=== PATIENT | female | born 1990 | race Caucasian/White ===

== ENCOUNTER 2017-11-25 21:23 | Emergency (ER) | payer OTHER ==
[2017-11-25] MEDS ORDERED: SODIUM CHLORIDE 0.9% 500 ML IV STA (21:30)
[2017-11-25] MEDS ORDERED: SODIUM CHLORIDE 0.9% 1,000 ML IV STA (21:30)
[2017-11-25] MEDS ORDERED: LORazepam 2 MG/ML INJ IV STA (21:30)
--- NOTE | 2017-11-25 21:35 | ED ---
Nausea/Vomiting/Diarrhea HPI - General Stated complaint: abd pain Time Seen by Provider: 11/25/17 21:23 Source: patient, EMS, RN notes reviewed, old records reviewed - History of Present Illness Initial comments: This is a 27-year-old female who is status post an exploratory laparotomy for right ovarian cyst and intractable abdominal pain who comes in today by EMS because of intractable nausea vomiting and lower abdominal pain. When asked how he time she struck she says at least 300. She was given Zofran by paramedics. He does still somewhat improved she was noted be very anxious and hyperventilating upon arrival. Apparently the nausea started yesterday when she got home and got worse today and this afternoon. She denies any fevers chills sweats he does complain of severe abdominal pain. No overt complaints of dysuria or hematuria diarrhea or constipation. MD complaint: nausea, vomiting, abdominal pain - Related Data Home Medications Medication Instructions Recorded Confirmed Multivitamins, Thera [Multivitamin 1 tab PO DAILY 11/25/17 11/25/17 (formulary)] Previous Rx's Medication Instructions Recorded Promethazine [Phenergan] 25 mg PO Q6HR PRN #12 tablet 11/25/17 traMADol HCL [Ultram] 50 mg PO Q6HR PRN #20 tab 11/25/17 Allergies Allergy/AdvReac Type Severity Reaction Status Date / Time codeine AdvReac Nausea & Verified 11/25/17 21:44 Vomiting Review of Systems ROS Statement: Those systems with pertinent positive or pertinent negative responses have been documented in the HPI. ROS Other: All systems not noted in ROS Statement are negative. Past Medical History Past Medical History: No Reported History History of Any Multi-Drug Resistant Organisms: None Reported Additional Past Surgical History / Comment(s): Exploratory abdominal surgery 2014 fluid found Past Psychological History: Anxiety Smoking Status: Never smoker Past Alcohol Use History: None Reported Past Drug Use History: Marijuana Additional Drug Use History / Comment(s): smokes pot everyday, keeps her calm - Past Family History Mother Family Medical History: No Reported History General Exam - General Exam Comments Initial Comments: This is a well-developed well-nourished awake alert oriented 3 female she is very anxious he is hyperventilating. Limitations: no limitations General appearance: alert, anxious, in distress Head exam: Present: atraumatic, normocephalic, normal inspection Eye exam: Present: normal appearance, PERRL, EOMI. Absent: scleral icterus, conjunctival injection, periorbital swelling ENT exam: Present: normal exam, mucous membranes moist Neck exam: Present: normal inspection. Absent: tenderness, meningismus, lymphadenopathy Respiratory exam: Present: normal lung sounds bilaterally. Absent: respiratory distress, wheezes, rales, rhonchi, stridor Cardiovascular Exam: Present: regular rate, normal rhythm, normal heart sounds. Absent: systolic murmur, diastolic murmur, rubs, gallop, clicks GI/Abdominal exam: Present: soft, tenderness, normal bowel sounds, other (Mild discomfort to palpation in the incision site in the mid and left lower quadrant is intact with Steri-Strips present no evidence of any dehiscence no bleeding no evidence of any seroma hematoma.). Absent: distended, guarding, rebound, rigid Rectal exam: Present: deferred Extremities exam: Present: normal inspection, full ROM, normal capillary refill. Absent: tenderness, pedal edema, joint swelling, calf tenderness Back exam: Present: normal inspection Neurological exam: Present: alert, oriented X3, CN II-XII intact Psychiatric exam: Present: anxious Skin exam: Present: warm, dry, intact, normal color. Absent: rash Course Vital Signs 11/25/17 21:30 Temperature 98.0 F Pulse Rate 90 Respiratory 26 H Rate Blood Pressure 138/87 O2 Sat by Pulse 100 Oximetry Medical Decision Making - Medical Decision Making The patient is so much improved after the medication was rendered. She will be discharged she states she gets very nauseated with [place] we will try tramadol. Also the Phenergan seemed to help she will fill prescription for Phenergan. She is keep her follow-up appointment with Dr. Whitlock I did recommend to the patient takes citrus products as well as bananas for potassium replacement. - Lab Data Result diagrams: 11/25/17 21:28 11/25/17 21:28 Lab Results 11/25/17 11/25/17 11/25/17 Range/Units 21:28 21:28 21:28 WBC 6.3 (3.8-10.6) k/uL RBC 3.05 L (3.80-5.40) m/uL Hgb 10.0 L D (11.4-16.0) gm/dL Hct 27.3 L (34.0-46.0) % MCV 89.8 (80.0-100.0) fL MCH 33.0 (25.0-35.0) pg MCHC 36.7 (31.0-37.0) g/dL RDW 13.1 (11.5-15.5) % Plt Count 234 (150-450) k/uL Neutrophils % 73 % Lymphocytes % 18 % Monocytes % 4 % Eosinophils % 3 % Basophils % 0 % Neutrophils # 4.5 (1.3-7.7) k/uL Lymphocytes # 1.1 (1.0-4.8) k/uL Monocytes # 0.3 (0-1.0) k/uL Eosinophils # 0.2 (0-0.7) k/uL Basophils # 0.0 (0-0.2) k/uL Hyperchromasia Slight Sodium 138 (137-145) mmol/L Potassium 3.3 L (3.5-5.1) mmol/L Chloride 106 (98-107) mmol/L Carbon Dioxide 24 (22-30) mmol/L Anion Gap 8 mmol/L BUN 10 (7-17) mg/dL Creatinine 0.61 (0.52-1.04) mg/dL Est GFR (MDRD) Af Amer >60 (>60 ml/min/1.73 sqM) Est GFR (MDRD) Non-Af >60 (>60 ml/min/1.73 sqM) Glucose 101 H (74-99) mg/dL Calcium 9.0 (8.4-10.2) mg/dL Magnesium 1.8 (1.6-2.3) mg/dL Total Bilirubin 0.7 (0.2-1.3) mg/dL AST 22 (14-36) U/L ALT 21 (9-52) U/L Alkaline Phosphatase 42 (38-126) U/L Total Protein 6.1 L (6.3-8.2) g/dL Albumin 3.7 (3.5-5.0) g/dL Amylase 38 (30-110) U/L Lipase 35 (23-300) U/L Urine Color Urine Appearance (Clear) Urine pH (5.0-8.0) Ur Specific [place] (1.001-1.035) Urine Protein (Negative) Urine Glucose (UA) (Negative) Urine Ketones (Negative) Urine Blood (Negative) Urine Nitrite (Negative) Urine Bilirubin (Negative) Urine Urobilinogen (<2.0) mg/dL Ur Leukocyte Esterase (Negative) Urine RBC (0-5) /hpf Urine WBC (0-5) /hpf Ur Squamous Epith Cells (0-4) /hpf Amorphous Sediment (None) /hpf Urine Bacteria (None) /hpf Urine Mucus (None) /hpf 11/25/17 Range/Units 22:44 WBC (3.8-10.6) k/uL RBC (3.80-5.40) m/uL Hgb (11.4-16.0) gm/dL Hct (34.0-46.0) % MCV (80.0-100.0) fL MCH (25.0-35.0) pg MCHC (31.0-37.0) g/dL RDW (11.5-15.5) % Plt Count (150-450) k/uL Neutrophils % % Lymphocytes % % Monocytes % % Eosinophils % % Basophils % % Neutrophils # (1.3-7.7) k/uL Lymphocytes # (1.0-4.8) k/uL Monocytes # (0-1.0) k/uL Eosinophils # (0-0.7) k/uL Basophils # (0-0.2) k/uL Hyperchromasia Sodium (137-145) mmol/L Potassium (3.5-5.1) mmol/L Chloride (98-107) mmol/L Carbon Dioxide (22-30) mmol/L Anion Gap mmol/L BUN (7-17) mg/dL Creatinine (0.52-1.04) mg/dL Est GFR (MDRD) Af Amer (>60 ml/min/1.73 sqM) Est GFR (MDRD) Non-Af (>60 ml/min/1.73 sqM) Glucose (74-99) mg/dL Calcium (8.4-10.2) mg/dL Magnesium (1.6-2.3) mg/dL Total Bilirubin (0.2-1.3) mg/dL AST (14-36) U/L ALT (9-52) U/L Alkaline Phosphatase (38-126) U/L Total Protein (6.3-8.2) g/dL Albumin (3.5-5.0) g/dL Amylase (30-110) U/L Lipase (23-300) U/L Urine Color Yellow Urine Appearance Cloudy H (Clear) Urine pH 8.0 (5.0-8.0) Ur Specific [place] 1.020 (1.001-1.035) Urine Protein Trace H (Negative) Urine Glucose (UA) Negative (Negative) Urine Ketones 1+ H (Negative) Urine Blood Negative (Negative) Urine Nitrite Negative (Negative) Urine Bilirubin Negative (Negative) Urine Urobilinogen <2.0 (<2.0) mg/dL Ur Leukocyte Esterase Trace H (Negative) Urine RBC 1 (0-5) /hpf Urine WBC 6 H (0-5) /hpf Ur Squamous Epith Cells 5 H (0-4) /hpf Amorphous Sediment Rare H (None) /hpf Urine Bacteria Rare H (None) /hpf Urine Mucus Moderate H (None) /hpf - Radiology Data Radiology results: report reviewed (I did review the imaging and report no acute findings.), image reviewed Disposition Clinical Impression: Nausea and vomiting in adult, Postoperative pain Disposition: HOME SELF-CARE Condition: Good Instructions: Acute Nausea and Vomiting (ED) Prescriptions: Promethazine [Phenergan] 25 mg PO Q6HR PRN #12 tablet PRN Reason: Nausea traMADol HCL [Ultram] 50 mg PO Q6HR PRN #20 tab PRN Reason: Pain Referrals: None,Stated [Primary Care Provider] - 1-2 days
[2017-11-25] MEDS ORDERED: HYDROmorphone 2 MG/ML 1 ML SYRINGE IVP STA (21:39)
[2017-11-25 21:48] LABS: Basophils % (A) 0 %; Eosinophils # (A) 0.2 k/uL (0-0.7); Eosinophils % (A) 3 %; HCT 27.3 % (34.0-46.0); Hyperchromasia Slight; Lymphocytes # (A) 1.1 k/uL (1.0-4.8); Lymphocytes % (A) 18 %; MCHC 36.7 g/dL (31.0-37.0); MCV 89.8 fL (80.0-100.0); Mean Platelet Volume 7.5; Monocytes # (A) 0.3 k/uL (0-1.0); Monocytes % (A) 4 %; Neutrophils # (A) 4.5 k/uL (1.3-7.7); Neutrophils % (A) 73 %; Platelet Count 234 k/uL (150-450); RBC 3.05 m/uL (3.80-5.40); RDW 13.1 % (11.5-15.5); WBC 6.3 k/uL (3.8-10.6)
[2017-11-25 21:55] LABS: ALT 21 U/L (9-52); AST 22 U/L (14-36); Albumin 3.7 g/dL (3.5-5.0); Alkaline Phosphatase 42 U/L (38-126); Amylase 38 U/L (30-110); Anion Gap 8 mmol/L; Blood Urea Nitrogen 10 mg/dL (7-17); Carbon Dioxide 24 mmol/L (22-30); Chloride 106 mmol/L (98-107); Glucose 101 mg/dL (74-99); Lipase 35 U/L (23-300); Potassium 3.3 mmol/L (3.5-5.1); Sodium 138 mmol/L (137-145); Total Bilirubin 0.7 mg/dL (0.2-1.3); Total Protein 6.1 g/dL (6.3-8.2)
[2017-11-25] MEDS ORDERED: PROMETHAZINE INJ 25 MG in SODIUM CHLORIDE 0.9% 50 ML IVPB STA (22:08)
--- NOTE | 2017-11-25 22:11 | XR ---
EXAMINATION TYPE: XR KUB DATE OF EXAM: 11/25/2017 COMPARISON: NONE HISTORY: Abdominal pain TECHNIQUE: 2 views FINDINGS: Bowel gas pattern is normal. There is no sign of intestinal obstruction or pneumoperitoneum . Fecal pattern is normal. There are no pathologic calcifications over the kidneys. Lung bases are cl ear. IMPRESSION: Nonacute abdomen.
[2017-11-25 22:54] LABS: Amorphous Sediment,Urine Rare /hpf; Appearance,Urine Cloudy (Clear); Bacteria,Urine Rare /hpf; Bilirubin,Urine Negative (Negative); Blood,Urine Negative (Negative); Color,Urine Yellow; Glucose,Urine (UA) Negative (Negative); Ketones,Urine 1+ (Negative); Leukocyte Esterase,Urine Trace (Negative); Mucus,Urine Moderate /hpf; Nitrite,Urine Negative (Negative); Protein,Urine Trace (Negative); RBC,Urine 1 /hpf (0-5); Squamous Epithelial Cell,Urine 5 /hpf (0-4); Urobilinogen,Urine <2.0 mg/dL (<2.0); WBC,Urine 6 /hpf (0-5)
--- NOTE | 2017-11-25 23:09 | ED ---
Medical Decision Making - Lab Data Result diagrams: 11/25/17 21:28 11/25/17 21:28 Lab Results 11/25/17 11/25/17 11/25/17 Range/Units 21:28 21:28 21:28 WBC 6.3 (3.8-10.6) k/uL RBC 3.05 L (3.80-5.40) m/uL Hgb 10.0 L D (11.4-16.0) gm/dL Hct 27.3 L (34.0-46.0) % MCV 89.8 (80.0-100.0) fL MCH 33.0 (25.0-35.0) pg MCHC 36.7 (31.0-37.0) g/dL RDW 13.1 (11.5-15.5) % Plt Count 234 (150-450) k/uL Neutrophils % 73 % Lymphocytes % 18 % Monocytes % 4 % Eosinophils % 3 % Basophils % 0 % Neutrophils # 4.5 (1.3-7.7) k/uL Lymphocytes # 1.1 (1.0-4.8) k/uL Monocytes # 0.3 (0-1.0) k/uL Eosinophils # 0.2 (0-0.7) k/uL Basophils # 0.0 (0-0.2) k/uL Hyperchromasia Slight Sodium 138 (137-145) mmol/L Potassium 3.3 L (3.5-5.1) mmol/L Chloride 106 (98-107) mmol/L Carbon Dioxide 24 (22-30) mmol/L Anion Gap 8 mmol/L BUN 10 (7-17) mg/dL Creatinine 0.61 (0.52-1.04) mg/dL Est GFR (MDRD) Af Amer >60 (>60 ml/min/1.73 sqM) Est GFR (MDRD) Non-Af >60 (>60 ml/min/1.73 sqM) Glucose 101 H (74-99) mg/dL Calcium 9.0 (8.4-10.2) mg/dL Magnesium 1.8 (1.6-2.3) mg/dL Total Bilirubin 0.7 (0.2-1.3) mg/dL AST 22 (14-36) U/L ALT 21 (9-52) U/L Alkaline Phosphatase 42 (38-126) U/L Total Protein 6.1 L (6.3-8.2) g/dL Albumin 3.7 (3.5-5.0) g/dL Amylase 38 (30-110) U/L Lipase 35 (23-300) U/L Urine Color Urine Appearance (Clear) Urine pH (5.0-8.0) Ur Specific [place] (1.001-1.035) Urine Protein (Negative) Urine Glucose (UA) (Negative) Urine Ketones (Negative) Urine Blood (Negative) Urine Nitrite (Negative) Urine Bilirubin (Negative) Urine Urobilinogen (<2.0) mg/dL Ur Leukocyte Esterase (Negative) Urine RBC (0-5) /hpf Urine WBC (0-5) /hpf Ur Squamous Epith Cells (0-4) /hpf Amorphous Sediment (None) /hpf Urine Bacteria (None) /hpf Urine Mucus (None) /hpf 11/25/17 Range/Units 22:44 WBC (3.8-10.6) k/uL RBC (3.80-5.40) m/uL Hgb (11.4-16.0) gm/dL Hct (34.0-46.0) % MCV (80.0-100.0) fL MCH (25.0-35.0) pg MCHC (31.0-37.0) g/dL RDW (11.5-15.5) % Plt Count (150-450) k/uL Neutrophils % % Lymphocytes % % Monocytes % % Eosinophils % % Basophils % % Neutrophils # (1.3-7.7) k/uL Lymphocytes # (1.0-4.8) k/uL Monocytes # (0-1.0) k/uL Eosinophils # (0-0.7) k/uL Basophils # (0-0.2) k/uL Hyperchromasia Sodium (137-145) mmol/L Potassium (3.5-5.1) mmol/L Chloride (98-107) mmol/L Carbon Dioxide (22-30) mmol/L Anion Gap mmol/L BUN (7-17) mg/dL Creatinine (0.52-1.04) mg/dL Est GFR (MDRD) Af Amer (>60 ml/min/1.73 sqM) Est GFR (MDRD) Non-Af (>60 ml/min/1.73 sqM) Glucose (74-99) mg/dL Calcium (8.4-10.2) mg/dL Magnesium (1.6-2.3) mg/dL Total Bilirubin (0.2-1.3) mg/dL AST (14-36) U/L ALT (9-52) U/L Alkaline Phosphatase (38-126) U/L Total Protein (6.3-8.2) g/dL Albumin (3.5-5.0) g/dL Amylase (30-110) U/L Lipase (23-300) U/L Urine Color Yellow Urine Appearance Cloudy H (Clear) Urine pH 8.0 (5.0-8.0) Ur Specific [place] 1.020 (1.001-1.035) Urine Protein Trace H (Negative) Urine Glucose (UA) Negative (Negative) Urine Ketones 1+ H (Negative) Urine Blood Negative (Negative) Urine Nitrite Negative (Negative) Urine Bilirubin Negative (Negative) Urine Urobilinogen <2.0 (<2.0) mg/dL Ur Leukocyte Esterase Trace H (Negative) Urine RBC 1 (0-5) /hpf Urine WBC 6 H (0-5) /hpf Ur Squamous Epith Cells 5 H (0-4) /hpf Amorphous Sediment Rare H (None) /hpf Urine Bacteria Rare H (None) /hpf Urine Mucus Moderate H (None) /hpf Disposition Clinical Impression: Nausea and vomiting in adult, Postoperative pain, Anxiety Disposition: HOME SELF-CARE Condition: Good Instructions: Acute Nausea and Vomiting (ED), Anxiety (ED), Abdominal Pain (ED) Prescriptions: ALPRAZolam [Xanax] 0.25 mg PO BID PRN #6 tab PRN Reason: Anxiety Promethazine [Phenergan] 25 mg PO Q6HR PRN #12 tablet PRN Reason: Nausea traMADol HCL [Ultram] 50 mg PO Q6HR PRN #20 tab PRN Reason: Pain Referrals: None,Stated [Primary Care Provider] - 1-2 days
[2017-11-25 23:17] VITALS: BP 120/69; PULSE 80; RESP 17; TEMP 98.4
== END 2017-11-25 23:30 | disposition home or self-care (01) ==
LOC: EC 21:23
DX: R11.2 Nausea with vomiting, unspecified (principal); R10.30 Lower abdominal pain, unspecified; G89.18 Other acute postprocedural pain; F41.9 Anxiety disorder, unspecified; Z98.890 Other specified postprocedural states; Z79.899 Other long term (current) drug therapy; Z88.5 Allergy status to narcotic agent
CPT/HCPCS: 36415; 80053; 82150; 83690; 83735; 85025; 81001; 74018; 99285; 96374; 96375 ×2; 96361 ×2; J2060; J1170; J2550

== ENCOUNTER 2018-05-27 06:42 | Emergency (ER) | payer OTHER ==
[2018-05-27 06:51] VITALS: BP 125/85; PULSE 88; RESP 18; TEMP 98.9
--- NOTE | 2018-05-27 07:15 | ED ---
General Adult HPI - General Chief complaint: Extremity Injury, Lower Stated complaint: Knee injury Time Seen by Provider: 05/27/18 07:00 Source: patient, RN notes reviewed, old records reviewed Mode of arrival: ambulatory Limitations: no limitations - History of Present Illness Initial comments: 28-year-old female resents with right knee injury. Patient states yesterday she was stepping off of a 2-3 for rock, twisted on her right knee. She did feel a pop at that time. She's had pain and swelling with any movement of the knee since the injury. Denies any injury to hip or ankle. No other trauma reported. Patient is otherwise healthy with no chronic medical problems. - Related Data Previous Rx's Medication Instructions Recorded Ibuprofen [Motrin] 600 mg PO Q8HR PRN #24 tab 05/27/18 Allergies Allergy/AdvReac Type Severity Reaction Status Date / Time codeine AdvReac Nausea & Verified 05/27/18 06:51 Vomiting Review of Systems ROS Statement: Those systems with pertinent positive or pertinent negative responses have been documented in the HPI. ROS Other: All systems not noted in ROS Statement are negative. Past Medical History Past Medical History: No Reported History History of Any Multi-Drug Resistant Organisms: None Reported Additional Past Surgical History / Comment(s): Exploratory abdominal surgery 2014 fluid found, Ovaran csyst removal Past Psychological History: Anxiety Smoking Status: Never smoker Past Alcohol Use History: None Reported Past Drug Use History: Marijuana - Past Family History Mother Family Medical History: No Reported History General Exam Limitations: no limitations General appearance: alert, in no apparent distress Head exam: Present: atraumatic, normocephalic Eye exam: Present: normal appearance, PERRL ENT exam: Present: normal exam Neck exam: Present: normal inspection. Absent: tenderness, meningismus Respiratory exam: Present: normal lung sounds bilaterally. Absent: respiratory distress, wheezes Cardiovascular Exam: Present: regular rate, normal rhythm GI/Abdominal exam: Present: soft. Absent: distended, tenderness Extremities exam: Present: normal capillary refill, joint swelling, other (Mild right knee effusion. Range of motion limited secondary to pain.). Absent: pedal edema Neurological exam: Present: alert, oriented X3. Absent: motor sensory deficit Psychiatric exam: Present: normal affect, normal mood Skin exam: Present: warm, dry, intact. Absent: cyanosis, diaphoretic Course Vital Signs 05/27/18 06:47 Temperature 98.9 F Pulse Rate 88 Respiratory 18 Rate Blood Pressure 125/85 O2 Sat by Pulse 99 Oximetry Medical Decision Making - Medical Decision Making 28-year-old female presenting with right knee pain status post bending and twisting injury. She has mild joint effusion on exam. Otherwise well- appearing. X-rays obtained, negative for fracture or dislocation. Patient is placed in a knee immobilizer, given prescription for crutches, will follow-up with orthopedics, for likely MRI knee, and further evaluation treatment. Disposition Clinical Impression: Knee effusion, right, Knee strain Disposition: HOME SELF-CARE Condition: Good Instructions: Knee Sprain (ED) Prescriptions: Ibuprofen [Motrin] 600 mg PO Q8HR PRN #24 tab PRN Reason: Pain Is patient prescribed a controlled substance at d/c from ED?: No Referrals: None,Stated [Primary Care Provider] - 1-2 days Herbert Porras MD [Medical Doctor] - 1-2 days Time of Disposition: 08:07
[2018-05-27] MEDS ORDERED: KETOROLAC 30 MG/ML 1 ML VIAL IM STA (07:49)
[2018-05-27] MEDS ORDERED: IBUPROFEN 600 MG TAB PO STA (07:51)
--- NOTE | 2018-05-27 08:04 | XR ---
EXAMINATION TYPE: XR knee complete RT DATE OF EXAM: 05/27/2018 COMPARISON: None HISTORY: Pain, felt pop stepping off ladder awkwardly TECHNIQUE: Three-view right knee FINDINGS: No acute fractures are evident. Soft tissues appear normal. No joint effusion is evident. IMPRESSION: 1. Normal three-view right knee
== END 2018-05-27 08:32 | disposition home or self-care (01) ==
LOC: EC 06:42
DX: S86.911A Strain of unspecified muscle(s) and tendon(s) at lower leg level, right leg, initial encounter (principal); Z88.5 Allergy status to narcotic agent; Z53.20 Procedure and treatment not carried out because of patient's decision for unspecified reasons; W22.09XA Striking against other stationary object, initial encounter; X50.1XXA Overexertion from prolonged static or awkward postures, initial encounter; Y92.69 Other specified industrial and construction area as the place of occurrence of the external cause
CPT/HCPCS: 99284

== ENCOUNTER 2018-10-10 02:19 | Emergency (ER) | payer OTHER ==
[2018-10-10] MEDS ORDERED: ACETAMINOPHEN TAB 500 MG TAB PO STA (02:33)
[2018-10-10] MEDS ORDERED: KETOROLAC 30 MG/ML 1 ML VIAL IVP STA (02:34)
[2018-10-10] MEDS ORDERED: METOCLOPRAMIDE 5 MG/ML 2 ML VIAL IVP STA (02:34)
[2018-10-10] MEDS ORDERED: diphenhydrAMINE 50 MG/ML 1 ML VIAL IVP STA (02:34)
--- NOTE | 2018-10-10 02:44 | ED ---
General Adult HPI - General Chief complaint: Skin/Abscess/Foreign Body Stated complaint: fever,spider bite Time Seen by Provider: 10/10/18 02:28 Source: patient Mode of arrival: ambulatory Limitations: no limitations - History of Present Illness Initial comments: 28-year-old female patient presents to the emergency department today with chief complaint of headache and lesion to the right thigh. Patient states she was in [place] a week ago, developed what she thought was an ingrown hair to the right anterior thigh. Patient states over the last couple days the area has become more red and swollen. States it is painful to touch. States that she has had low-grade temperatures at 99.0F today. States that earlier at the store she developed a headache. Patient states she did take medication for the headache however she vomited shortly after. Patient has had 4 episodes of vomiting. States that the pain is severe and the worst headache she's ever had. States that she is extremely sensitive to light and sound. She denies any blurred or double vision. Denies any numbness or tingling to her extremities. Patient denies any recent rash, shortness breath, chest pain, abdominal pain, diarrhea, constipation, back pain, hematuria, dysuria, urinary urgency, urinary frequency, headache, visual changes, or any other complaints. - Related Data Previous Rx's Medication Instructions Recorded Ibuprofen [Motrin] 600 mg PO Q8HR PRN #24 tab 05/27/18 Sulfamethoxazole/Trimethoprim 1 each PO BID #20 tablet 10/10/18 [Bactrim DS 800-160 mg] Allergies Allergy/AdvReac Type Severity Reaction Status Date / Time codeine AdvReac Nausea & Verified 05/27/18 06:51 Vomiting Review of Systems ROS Statement: Those systems with pertinent positive or pertinent negative responses have been documented in the HPI. ROS Other: All systems not noted in ROS Statement are negative. Past Medical History Past Medical History: No Reported History History of Any Multi-Drug Resistant Organisms: None Reported Past Surgical History: No Surgical Hx Reported Additional Past Surgical History / Comment(s): Exploratory abdominal surgery 2014 fluid found, Ovaran csyst removal Past Psychological History: Anxiety Smoking Status: Never smoker Past Alcohol Use History: None Reported Past Drug Use History: Marijuana - Past Family History Mother Family Medical History: No Reported History General Exam Limitations: no limitations General appearance: alert, in no apparent distress, other (This is a well- developed, well-nourished adult female patient, extremely anxious. Vital signs upon presentation are temperature 99.0F, pulse 118, respirations 22, blood pressure 127/71, pulse ox 99% on room air.) Eye exam: Present: normal appearance, PERRL, EOMI. Absent: scleral icterus, conjunctival injection, periorbital swelling ENT exam: Present: normal exam, normal oropharynx, mucous membranes moist Respiratory exam: Present: normal lung sounds bilaterally. Absent: respiratory distress, wheezes, rales, rhonchi, stridor Cardiovascular Exam: Present: regular rate, normal rhythm, normal heart sounds. Absent: systolic murmur, diastolic murmur, rubs, gallop, clicks GI/Abdominal exam: Present: soft, normal bowel sounds. Absent: distended, tenderness, guarding, rebound, rigid Extremities exam: Present: full ROM, normal capillary refill, other (There is a scabbed lesion to the right anterior thigh which exhibits surrounding cellulitis and mild central induration. No fluctuance.). Absent: normal inspection, tenderness, pedal edema, joint swelling, calf tenderness Neurological exam: Present: alert, oriented X3, CN II-XII intact, other ( Strength in all 4 extremities is 5/5.) Psychiatric exam: Present: normal affect, normal mood Skin exam: Present: warm, dry, intact, normal color. Absent: rash Course Vital Signs 10/10/18 10/10/18 10/10/18 02:20 03:08 03:17 Temperature 99.0 F Pulse Rate 118 H 86 Respiratory 22 30 H 18 Rate Blood Pressure 127/71 110/63 O2 Sat by Pulse 99 96 Oximetry Medical Decision Making - Medical Decision Making 28-year-old female patient presents the emergency department today for evaluation of headache which she describes as a worse headache she is ever had, and abscess to the right anterior thigh. Physical examination did reveal a scabbed lesion to the right anterior thigh with approximately 2 cm of surrounding cellulitis. There is no fluctuance or evidence of drainable abscess. Patient is neurologically intact however did report increased pain with flexion of the neck. Labs reviewed and did reveal elevated white blood cell count at 13.0. Patient had temperature 99.0. Patient was given IV fluids , pain medication, nausea medication here in the department. Upon reevaluation she does feel much improved however still reports headache at 4 out of 10 on the pain scale. I did discuss with patient risk of meningitis and did recommend performing lumbar puncture to test for this. I did discuss risks versus benefits of the procedure, patient refuses at this time. She will be discharged home with prescription for Bactrim to cover for the abscess to the thigh. She is instructed to follow-up with her primary care physician for recheck as soon as possible. Return parameters were discussed in detail. She verbalizes understanding and agrees with this plan. - Lab Data Result diagrams: 10/10/18 02:40 10/10/18 02:40 Lab Results 10/10/18 10/10/18 10/10/18 Range/Units 02:40 02:40 02:40 WBC 13.0 H (3.8-10.6) k/uL RBC 4.38 (3.80-5.40) m/uL Hgb 13.7 (11.4-16.0) gm/dL Hct 40.2 (34.0-46.0) % MCV 91.6 (80.0-100.0) fL MCH 31.1 (25.0-35.0) pg MCHC 34.0 (31.0-37.0) g/dL RDW 12.2 (11.5-15.5) % Plt Count 245 (150-450) k/uL Neutrophils % 87 % Lymphocytes % 9 % Monocytes % 2 % Eosinophils % 0 % Basophils % 0 % Neutrophils # 11.3 H (1.3-7.7) k/uL Lymphocytes # 1.2 (1.0-4.8) k/uL Monocytes # 0.3 (0-1.0) k/uL Eosinophils # 0.0 (0-0.7) k/uL Basophils # 0.0 (0-0.2) k/uL Sodium 139 (137-145) mmol/L Potassium 3.9 (3.5-5.1) mmol/L Chloride 104 (98-107) mmol/L Carbon Dioxide 25 (22-30) mmol/L Anion Gap 10 mmol/L BUN 12 (7-17) mg/dL Creatinine 0.69 (0.52-1.04) mg/dL Est GFR (CKD-EPI)AfAm >90 (>60 ml/min/1.73 sqM) Est GFR (CKD-EPI)NonAf >90 (>60 ml/min/1.73 sqM) Glucose 133 H (74-99) mg/dL Plasma Lactic Acid Brian 1.3 (0.7-2.0) mmol/L Calcium 9.6 (8.4-10.2) mg/dL Total Bilirubin 0.4 (0.2-1.3) mg/dL AST 21 (14-36) U/L ALT 20 (9-52) U/L Alkaline Phosphatase 65 (38-126) U/L Total Protein 7.3 (6.3-8.2) g/dL Albumin 4.4 (3.5-5.0) g/dL Urine Color Urine Appearance (Clear) Urine pH (5.0-8.0) Ur Specific [place] (1.001-1.035) Urine Protein (Negative) Urine Glucose (UA) (Negative) Urine Ketones (Negative) Urine Blood (Negative) Urine Nitrite (Negative) Urine Bilirubin (Negative) Urine Urobilinogen (<2.0) mg/dL Ur Leukocyte Esterase (Negative) Urine RBC (0-5) /hpf Urine WBC (0-5) /hpf Ur Squamous Epith Cells (0-4) /hpf Urine Bacteria (None) /hpf Urine Mucus (None) /hpf Influenza Type A RNA (Not Detectd) Influenza Type B (PCR) (Not Detectd) 10/10/18 10/10/18 Range/Units 02:57 03:00 WBC (3.8-10.6) k/uL RBC (3.80-5.40) m/uL Hgb (11.4-16.0) gm/dL Hct (34.0-46.0) % MCV (80.0-100.0) fL MCH (25.0-35.0) pg MCHC (31.0-37.0) g/dL RDW (11.5-15.5) % Plt Count (150-450) k/uL Neutrophils % % Lymphocytes % % Monocytes % % Eosinophils % % Basophils % % Neutrophils # (1.3-7.7) k/uL Lymphocytes # (1.0-4.8) k/uL Monocytes # (0-1.0) k/uL Eosinophils # (0-0.7) k/uL Basophils # (0-0.2) k/uL Sodium (137-145) mmol/L Potassium (3.5-5.1) mmol/L Chloride (98-107) mmol/L Carbon Dioxide (22-30) mmol/L Anion Gap mmol/L BUN (7-17) mg/dL Creatinine (0.52-1.04) mg/dL Est GFR (CKD-EPI)AfAm (>60 ml/min/1.73 sqM) Est GFR (CKD-EPI)NonAf (>60 ml/min/1.73 sqM) Glucose (74-99) mg/dL Plasma Lactic Acid Brian (0.7-2.0) mmol/L Calcium (8.4-10.2) mg/dL Total Bilirubin (0.2-1.3) mg/dL AST (14-36) U/L ALT (9-52) U/L Alkaline Phosphatase (38-126) U/L Total Protein (6.3-8.2) g/dL Albumin (3.5-5.0) g/dL Urine Color Light Yellow Urine Appearance Cloudy H (Clear) Urine pH 8.0 (5.0-8.0) Ur Specific [place] 1.007 (1.001-1.035) Urine Protein Negative (Negative) Urine Glucose (UA) Negative (Negative) Urine Ketones Negative (Negative) Urine Blood Negative (Negative) Urine Nitrite Negative (Negative) Urine Bilirubin Negative (Negative) Urine Urobilinogen <2.0 (<2.0) mg/dL Ur Leukocyte Esterase Negative (Negative) Urine RBC 1 (0-5) /hpf Urine WBC 4 (0-5) /hpf Ur Squamous Epith Cells 5 H (0-4) /hpf Urine Bacteria Rare H (None) /hpf Urine Mucus Rare H (None) /hpf Influenza Type A RNA Not Detected (Not Detectd) Influenza Type B (PCR) Not Detected (Not Detectd) - Radiology Data Radiology results: report reviewed, image reviewed CT brain without contrast was obtained. Report was reviewed in its entirety. Impression by Dr. Escalante shows normal head CT scan. Disposition Clinical Impression: Abscess of right thigh, Acute headache Disposition: HOME SELF-CARE Condition: Good Instructions: Acute Headache (ED), Abscess (ED), Warm Compress or Soak (ED) Additional Instructions: Apply warm compresses to the right thigh at least 20 minutes at a time 4 times daily. Complete antibiotic prescription and full. Return to the emergency department immediately for any new, worsening, or concerning symptoms. Prescriptions: Sulfamethoxazole/Trimethoprim [Bactrim DS 800-160 mg] 1 each PO BID #20 tablet Is patient prescribed a controlled substance at d/c from ED?: No Referrals: [facility] [NON-STAFF] - 1-2 days Time of Disposition: 03:58
[2018-10-10] MEDS: SODIUM CHLORIDE 0.9% 500 ML 500 ML IV SCH ×2 (02:47→03:18)
[2018-10-10 03:16] LABS: ALT 20 U/L (9-52); AST 21 U/L (14-36); Albumin 4.4 g/dL (3.5-5.0); Alkaline Phosphatase 65 U/L (38-126); Anion Gap 10 mmol/L; Blood Urea Nitrogen 12 mg/dL (7-17); Calcium 9.6 mg/dL (8.4-10.2); Carbon Dioxide 25 mmol/L (22-30); Chloride 104 mmol/L (98-107); Glucose 133 mg/dL (74-99); Potassium 3.9 mmol/L (3.5-5.1); Sodium 139 mmol/L (137-145); Total Bilirubin 0.4 mg/dL (0.2-1.3); Total Protein 7.3 g/dL (6.3-8.2)
--- NOTE | 2018-10-10 03:16 | CT ---
EXAMINATION TYPE: CT brain wo con DATE OF EXAM: 10/10/2018 COMPARISON: None HISTORY: headache CT DLP: 1087.40 mGycm. Automated Exposure Control for Dose Reduction was Utilized. TECHNIQUE: CT scan of the head is performed without contrast. FINDINGS: Ventricles of normal size. There is no mass effect nor midline shift. There is no sign of i ntracranial hemorrhage. Calvarium is intact. IMPRESSION: Normal head CT scan.
[2018-10-10 03:17] LABS: Basophils % (A) 0 %; Eosinophils % (A) 0 %; HCT 40.2 % (34.0-46.0); HGB 13.7 gm/dL (11.4-16.0); Lymphocytes # (A) 1.2 k/uL (1.0-4.8); Lymphocytes % (A) 9 %; MCH 31.1 pg (25.0-35.0); MCV 91.6 fL (80.0-100.0); Mean Platelet Volume 6.8; Monocytes # (A) 0.3 k/uL (0-1.0); Monocytes % (A) 2 %; Neutrophils # (A) 11.3 k/uL (1.3-7.7); Neutrophils % (A) 87 %; Platelet Count 245 k/uL (150-450); RBC 4.38 m/uL (3.80-5.40); RDW 12.2 % (11.5-15.5)
[2018-10-10 03:18] VITALS: PULSE 86; RESP 18
[2018-10-10 03:21] LABS: Appearance,Urine Cloudy (Clear); Bacteria,Urine Rare /hpf; Bilirubin,Urine Negative (Negative); Blood,Urine Negative (Negative); Color,Urine Light Yellow; Glucose,Urine (UA) Negative (Negative); Ketones,Urine Negative (Negative); Leukocyte Esterase,Urine Negative (Negative); Mucus,Urine Rare /hpf; Nitrite,Urine Negative (Negative); Protein,Urine Negative (Negative); RBC,Urine 1 /hpf (0-5); Specific Gravity,Urine 1.007 (1.001-1.035); Squamous Epithelial Cell,Urine 5 /hpf (0-4); Urobilinogen,Urine <2.0 mg/dL (<2.0); WBC,Urine 4 /hpf (0-5)
[2018-10-10] MEDS ORDERED: SULFAMETH-TMP DS STARTER PACK 2 TAB BTL PO STA (03:55)
[2018-10-10 04:08] VITALS: BP 112/62; TEMP 97.6
== END 2018-10-10 04:12 | disposition home or self-care (01) ==
LOC: EC 02:19
DX: L02.415 Cutaneous abscess of right lower limb (principal); R51 Headache; D72.829 Elevated white blood cell count, unspecified; R11.10 Vomiting, unspecified; H53.149 Visual discomfort, unspecified; Z88.5 Allergy status to narcotic agent
CPT/HCPCS: 36415; 80053; 83605; 85025; 81001; 87040; 87086; 87502; 70450; 99284; 96374; 96375 ×2; 96361; J1200; J2765; J1885

== ENCOUNTER 2019-05-10 19:45 | Emergency (ER) | payer OTHER ==
[2019-05-10] MEDS ORDERED: AMOXIC-POT CLAV 875MG STARTER 2 EACH TABLET PO STA (20:10)
[2019-05-10] MEDS ORDERED: LORazepam 1 MG TAB PO STA (20:10)
--- NOTE | 2019-05-10 20:39 | XR ---
EXAMINATION TYPE: XR hand complete LT DATE OF EXAM: 05/10/2019 COMPARISON: NONE HISTORY: Pain and swelling TECHNIQUE: 3 views FINDINGS: Metacarpals are intact. There is soft tissue air at the third metacarpal consistent with la ceration. I see no fracture nor dislocation. There are no erosions. IMPRESSION: Laceration deformity. No fracture. No sign of a foreign body.
[2019-05-10] MEDS ORDERED: LIDOCAINE 1% INJ 10MG/ML (20 ML MDV) SQ ONE (21:21)
[2019-05-10] MEDS ORDERED: DIPH,PERTUS(ACELL)TETVAC-LF 0.5 ML VIAL IM ONE (21:21)
--- NOTE | 2019-05-10 21:25 | ED ---
General Adult HPI - General Chief complaint: Animal Bite Stated complaint: Dog Bite Time Seen by Provider: 05/10/19 20:10 Source: patient, RN notes reviewed - History of Present Illness Initial comments: 29-year-old female presents to the emergency department for a chief complaint of dog bite. Patient states that she was trying to separate her dogs who were fighting about an hour prior to arrival when she became bitten on the legs and hand. States that dogs are up-to-date on immunizations for rabies. States that she is not up-to-date on her tetanus shot.Patient has no other complaints at this time including shortness of breath, chest pain, abdominal pain, nausea or vomiting, headache, or visual changes. - Related Data Previous Rx's Medication Instructions Recorded Ibuprofen [Motrin] 600 mg PO Q8HR PRN #24 tab 05/27/18 Sulfamethoxazole/Trimethoprim 1 each PO BID #20 tablet 10/10/18 [Bactrim DS 800-160 mg] Amoxicillin/Potassium Clav 1 tab PO Q12HR #20 tab 05/10/19 [Augmentin 875-125 Tablet] Allergies Allergy/AdvReac Type Severity Reaction Status Date / Time codeine AdvReac Nausea & Verified 05/27/18 06:51 Vomiting Review of Systems ROS Statement: Those systems with pertinent positive or pertinent negative responses have been documented in the HPI. ROS Other: All systems not noted in ROS Statement are negative. Past Medical History Past Medical History: No Reported History History of Any Multi-Drug Resistant Organisms: None Reported Past Surgical History: No Surgical Hx Reported Additional Past Surgical History / Comment(s): Exploratory abdominal surgery 2014 fluid found, Ovaran csyst removal Past Psychological History: Anxiety Smoking Status: Never smoker Past Alcohol Use History: None Reported Past Drug Use History: Marijuana - Past Family History Mother Family Medical History: No Reported History General Exam General appearance: alert, in no apparent distress Head exam: Present: atraumatic, normocephalic, normal inspection Eye exam: Present: normal appearance, PERRL, EOMI. Absent: scleral icterus, conjunctival injection, periorbital swelling ENT exam: Present: normal exam, mucous membranes moist Neck exam: Present: normal inspection, full ROM. Absent: tenderness, meningismus, lymphadenopathy Respiratory exam: Present: normal lung sounds bilaterally. Absent: respiratory distress, wheezes, rales, rhonchi, stridor Cardiovascular Exam: Present: regular rate, normal rhythm, normal heart sounds. Absent: systolic murmur, diastolic murmur, rubs, gallop, clicks Extremities exam: Present: other (Patient has a 1 cm laceration with adipose tissue exposed over the palmar MCP joint of the left second digit. There is also a 0.5 cm laceration noted to the proximal phalanx of the left third digit however this is not gaping. Multiple puncture wounds noted of the legs however no lacerations. No S3 status intact in all extremities.) Neurological exam: Present: alert, oriented X3, CN II-XII intact Psychiatric exam: Present: normal affect, normal mood Course Vital Signs 05/10/19 05/10/19 19:47 21:25 Temperature 98.5 F Pulse Rate 112 H 78 Respiratory 16 Rate Blood Pressure 146/90 O2 Sat by Pulse 99 98 Oximetry Procedures - Laceration Laceration #1 Consent Obtained: verbal consent Indication: laceration Site: hand (Palmar aspect of left second MCP) Depth: simple, single layer Anesthetic Used: lidocaine 1% Anesthesia Technique: local infiltration Amount (mls): 1 Pre-repair: wound explored, irrigated extensively (With saline pressure irrigation and iodine) Type of Sutures: other (Ethilon) Size of Sutures: 5-0 Number of Sutures: 1 Technique: simple, interrupted Patient Tolerated Procedure: well, no complications Additional Comments: Loosely tacked to allow for drainage Medical Decision Making - Medical Decision Making 29-year-old female presents to the emergency department for chief complaint of dog bite. Patient was bitten by her dogs who were fighting just prior to arrival. Patient initially having panic attack on arrival, given Ativan and feeling much better. Patient has small puncture wounds noted on the lower legs bilaterally. Patient has a 1 cm laceration noted to the left second MCP joint. There is adipose tissue exposed. It is gaping somewhat. Full range motion of the left second digit, flexor mechanism intact. Wound was cleaned thoroughly with saline pressure irrigation. One suture was used to tack laceration together yet allow for drainage. X-ray of the left hand negative for foreign bodies. Patient given tetanus shot. Patient given Augmentin. Recommended follow up with primary care in 2 days. Recommended strict return parameters including ulcer infection. Recommended returning if she has any worsening symptoms and returning in 7-10 days for suture removal. Disposition Clinical Impression: Dog bite, Laceration Disposition: HOME SELF-CARE Condition: Good Instructions (If sedation given, give patient instructions): Animal Bite (ED) Additional Instructions: Please take antibiotics as directed. Please follow-up with primary care in 1-2 days. Return to have sutures removed in 7-10 days. Return earlier if you have any signs of infection such as spreading or streaking redness, drainage, fever or any other worsening symptoms. Prescriptions: Amoxicillin/Potassium Clav [Augmentin 875-125 Tablet] 1 tab PO Q12HR #20 tab Is patient prescribed a controlled substance at d/c from ED?: No Referrals: Juany Contreras MD [STAFF PHYSICIAN] - 1-2 days Time of Disposition: 21:24
[2019-05-10 21:52] VITALS: BP 135/78; PULSE 77; RESP 18; TEMP 98.2
== END 2019-05-10 21:52 | disposition home or self-care (01) ==
LOC: EC 19:45
DX: S61.211A Laceration without foreign body of left index finger without damage to nail, initial encounter (principal); S61.213A Laceration without foreign body of left middle finger without damage to nail, initial encounter; S81.851A Open bite, right lower leg, initial encounter; S81.852A Open bite, left lower leg, initial encounter; Z88.5 Allergy status to narcotic agent; Z23 Encounter for immunization; W54.0XXA Bitten by dog, initial encounter; Y93.89 Activity, other specified
CPT/HCPCS: 73130; 90715; 99283; 12001; 90471; J2001

== ENCOUNTER → 2020-11-12 | Outpatient (CLI) | payer OTHER ==
--- NOTE | 2020-11-12 16:42 | MR ---
EXAMINATION TYPE: MR knee RT wo con DATE OF EXAM: 11/12/2020 COMPARISON: Right knee x-ray May 27, 2018 HISTORY: Right Knee pain, Swelling and locking. Injured 2 years ago, pain on and off since with exert ion TECHNIQUE: Multiplanar, multisequence imaging of the right knee is performed without IV contrast. FINDINGS: MEDIAL MENISCUS: Posterior horn has complex full-thickness tear with oblique and vertical components extending to articular surface. Anterior horn is oblique increased signal extending to inferior artic ular surface sagittal image 9 LATERAL MENISCUS: Anterior and posterior horns are intact without tear. CRUCIATE LIGAMENTS: The posterior cruciate ligament is intact and unremarkable. Anterior cruciate lig ament is torn at proximal to mid level with minimal residual normal tendon proximal aspect noted. COLLATERAL LIGAMENTS: The medial collateral ligament and lateral collateral ligament complex are inta ct and unremarkable. EXTENSOR MECHANISM: Visualized quadriceps and patellar tendons are intact. EFFUSION: Small suprapatellar joint effusion. POPLITEAL CYST: Moderate size popliteal/purvis cyst measuring 7.3 cm long axis sagittal image 9. TRICOMPARTMENT SPACES: Mild tricompartment joint space loss. No significant spurring. CARTILAGE: Tricompartment articular cartilage preserved. BONE MARROW SIGNAL: Heterogeneity consistent with red marrow reconversion. No suspicious edema. OTHER: No additional significant abnormality is appreciated. IMPRESSION: 1. Complex full-thickness tear posterior horn of medial meniscus. 2. Oblique full-thickness tear anterior horn of medial meniscus. 3. Complete ACL tear presumed related to trauma 2 years ago. 4. Moderate-sized popliteal cyst. 5. Small suprapatellar joint effusion.
== END | disposition home or self-care (01) ==
LOC: RADMRIMAIN 15:11
PROVIDERS: ATTEND Internal Medicine
DX: S83.241A Other tear of medial meniscus, current injury, right knee, initial encounter (principal); S83.511A Sprain of anterior cruciate ligament of right knee, initial encounter; M71.21 Synovial cyst of popliteal space [Baker], right knee; M25.461 Effusion, right knee

== ENCOUNTER 2020-12-26 06:48 | Day surgery (SDC) | payer OTHER ==
[2020-12-20 13:17] VITALS: BMI 24.9
[~2020-12-26 06:48] MED LIST: ACETAMINOPHEN TAB 500 MG TAB PO PRN; LACTATED RINGERS 1,000 ML IV SCH; LIDOCAINE 1% (10MG/ML) FOR IV START INTRADERMA PRN; ONDANSETRON 4 MG/2 ML VIAL IVP PRN; Pre Op ABX Message 1 EACH MISC MISCELLANE ONE
[2020-12-26] MEDS ORDERED: DEXAMETHASONE SOD PHOSPHATE 4 MG/ML 1 ML VIAL IV ONE (07:26)
[2020-12-26] MEDS ORDERED: SCOPOLAMINE 1.5MG/72HR PATCH TRANSDERM ONE (07:27)
[2020-12-26] MEDS ORDERED: MIDAZOLAM 2 MG/2 ML VIAL IV ONE (07:46)
[2020-12-26] MEDS ORDERED: SUCCINYLCHOLINE CHLORIDE 100 MG/5 ML SYR IV ONE (08:09)
[2020-12-26] MEDS ORDERED: MIDAZOLAM 2 MG/2 ML VIAL ONE (08:09)
[2020-12-26] MEDS ORDERED: fentaNYL (PF) 50 MCG/ML 2 ML AMP ONE (08:09)
[2020-12-26] MEDS ORDERED: PROPOFOL 10 MG/ML 20 ML VIAL IV ONE (08:09)
[2020-12-26] MEDS ORDERED: ONDANSETRON 4 MG/2 ML VIAL ONE (08:09)
[2020-12-26] MEDS ORDERED: LIDOCAINE 1% INJ 10MG/ML (20 ML MDV) ONE (08:09)
[2020-12-26] MEDS ORDERED: ceFAZolin 1,000 MG in SODIUM CHLORIDE 0.9% 1,000 ML IRRIGATION ONE (08:58)
[2020-12-26] MEDS ORDERED: BUPIVACAINE (PF) 0.25% 30 ML VIAL INTRAARTIC ONE (08:59)
[2020-12-26] MEDS: HYDROmorphone 0.5 MG/0.5 ML SYRINGE IVP PRN ×2 (10:22→10:27)
[2020-12-26] MEDS ORDERED: diphenhydrAMINE 50 MG/ML 1 ML VIAL IVP ONE (10:28)
[2020-12-26 10:35] VITALS: TEMP 97
[2020-12-26 10:37] VITALS: RESP 16
[2020-12-26] MEDS: fentaNYL (PF) 50 MCG/ML 2 ML AMP IVP ONE ×4 (10:41→11:00)
[2020-12-26] MEDS ORDERED: HYDROcodone/APAP 5-325MG 1 EACH TAB ONE (11:34)
[2020-12-26] MEDS ORDERED: HYDROcodone/APAP 5-325MG 1 EACH TAB PO ONE (11:36)
--- NOTE | 2020-12-26 11:41 | OP ---
OPERATIVE REPORT DATE OF PROCEDURE: 12/26/2020 PREOPERATIVE DIAGNOSIS: 1. 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 2. Right knee medial meniscus tear. POSTOPERATIVE DIAGNOSES: 1. 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 2. Right knee chronic bucket-handle medial meniscus tear. 3. Right knee thickened infrapatellar and medial shelf plica. PROCEDURE PERFORMED: 1. Right knee anterior cruciate ligament reconstruction with hamstring autograft. 2. Right knee arthroscopic partial medial meniscectomy. 3. Right knee arthroscopic lysis of adhesions. SURGEON: Zain Hedrick MD. HOUSING DEVELOPMENT SPECIALIST: CHERYL Pagan. ANESTHESIA: General endotracheal. ESTIMATED BLOOD LOSS: Minimal. TOURNIQUET TIME: 60 minutes at 250 mmHg. DRAINS: None. COMPLICATIONS: None apparent. DISPOSITION: Postanesthesia care unit. INDICATIONS: Camille is a 30-year-old female who injured her right knee a couple years ago. Physical examination and MRI are consist of a chronic rupture of the anterior cruciate ligament and medial meniscus tear. I had a long discussion with her with regards to treatment options. At this point, she does wish to proceed with operative intervention. Risks were explained to the patient which include, but are not limited to risk of infection, nerve damage, bleeding, pain, instability, deep vein thrombosis which could lead to fatal pulmonary embolism and graft rerupture. The patient understands these risks and wished to proceed with surgical procedure. EXAMINATION UNDER ANESTHESIA: Range of motion: Right full, left full. Effusion: Right none, left none. Elvira: Right increased 5 mm soft endpoint. Left normal with good endpoint. Pivot shift: Right grade 1, left grade 0. Posterior drawer: Right with good endpoint. Left with good end point. Varus laxity: Right none, left none. Valgus laxity: Right none, left none. External rotation: Right normal, left normal. ARTHROSCOPIC FINDINGS: Superior pouch is normal. Medial gutter thickened medial shelf plica. Lateral gutter is normal. Patella normal chondral surfaces. Trochlea normal chondral surfaces. Patellar tracking is normal. Medial femoral condyle, she had cracking of the cartilage on the posterior weightbearing surface of the medial femoral condyle. This was the area of grade 1 change. There were no loose chondral fragments noted. Medial tibial plateau normal chondral surfaces. Medial meniscus complex chronic bucket-handle tear of the posterior horn middle body of the medial meniscus. Lateral femoral condyle normal chondral surfaces. Lateral tibial plateau normal chondral surfaces. Lateral meniscus was normal. Anterior cruciate ligament chronic complete rupture of the anterior cruciate ligament. Posterior cruciate ligament is normal. Infrapatellar notch thickened infrapatellar plica and dense infrapatellar adhesions. DETAILS OF THE PROCEDURE: The patient was identified in preoperative holding area. Surgical site was marked by both the patient and myself. He was given 2 grams of Ancef IV for prophylactic purposes. She was then transported to the operative suite. She was placed supine on the operating room table. General anesthetic was then administered, dosed per the anesthesia department without apparent complication. Examination under anesthesia was then performed of both knees. The findings noted as above. A tourniquet was then placed high on the right upper thigh well-padded in preparation for surgery. The patient's right lower extremity was then prepped and draped in usual sterile fashion. Standard surgical pause was undertaken to ensure that we were operating on the correct site and that appropriate preoperative antibiotics had been given. All staff in the room were in agreement and we proceeded. The knee was then insufflated with 120 mL with sterile saline solution. This was done to gradually distend the joint. A standard inferolateral port was then made. A 30- degree arthroscope was inserted into the superior pouch. The arthroscope pump pressure was set to 60 mmHg and maintained at that level throughout the entire case. Next utilizing an 18-gauge spinal needle to topically localize the placement, the inferomedial port was made under direct visualization. A standard diagnostic arthroscopy of knee was then performed. The findings noted as above. Attention was then drawn to the infrapatellar notch, a very thickened infrapatellar plica as well as a thickened medial shelf plica and dense infrapatellar adhesions. These were all released with a biter and debrider back to stable tissue utilizing synovial shaver. Hemostasis was achieved with the ArthroCare wand. Attention was then drawn to the medial compartment. She had a macerated chronic bucket- handle tear of the posterior horn middle body of the medial meniscus. This tear was deemed irreparable. The meniscus tear was then debrided with a combination of biters and a synovial shaver back to stable tissue. Approximately 25% of the posterior horn middle body of the medial meniscus remained intact after debridement. Next, the arthroscope was placed through the notch into the posterior medial compartment of the knee. There were no residual flap tears or loose bodies noted. The posterior root attachment was carefully inspected and found to be intact. At this point time, we proceeded with harvesting of the hamstring tendons for autograft. The arthroscopic equipment was removed from the knee. The leg was then exsanguinated with an Esmarch dressing. The tourniquet was inflated to 250 mmHg. A small longitudinal incision was then made approximately 1.5 cm medial to the tibial tubercle. Dissection was carried down through the subcutaneous tissues until the sartorius tendon was identified. The sartorius was then incised using an L-shaped incision. The sartorius tendon was then retracted and the gracilis and semitendinosus tendons were identified. These tendons were then tagged with 2-0 Vicryl sutures. The tendons were then released from their insertion onto the tibia and stripped of their soft tissue attachments using a blunt technique as well as using scissors. The tendons were then harvested using a closed tendon stripper. The tendons were then taken on the back table where muscle fibers were scraped off of the tendons. The ends of the tendons were then whip stitched using a #2 Orthocord suture. The tendons were then doubled to form a 4-stranded hamstring graft. The graft diameter was measured at 8 mm. assistant baseball coach was critical at this portion of the case, as they provided adequate exposure to safely harvest the hamstring tendons. In addition, the offset assistant press operator completed the graft preparation allowing for decreased operating time further enhancing the safety of the procedure. Attention was then returned to the knee. The remnants of the anterior cruciate ligament were debrided utilizing arthroscopic shaver. The Arguello ACL guide was then placed into the knee with the tip held flush against the lateral wall of the notch. The knee was then brought in full extension and the tibial guide pin was drilled from the anteromedial tibia into the knee. The knee was then flexed and then pin in positioned and arthroscopically assessed to ensure that was in the proper position. The tibial tunnel was then created using a cannulated reamer equal to the size of the hamstring graft, which was 8 mm. A minimal lateral wall notchplasty was then performed utilizing synovial shaver in a elida-type fashion. The femoral origin of the anterior cruciate ligament was clearly identified. The femoral guide pin was then placed at the origin of the anterior cruciate ligament with planned back wall thickness of 1 mm. Femoral tunnel was then created with a cannulated reamer to the depth of 20 mm. The size reamer was again same size of the hamstring graft. Next, a 4.5 mm cannulated drill was used to penetrate the lateral femoral cortex. The Biomet toggle lock femoral fixation device was opened. The graft was placed through the closed loop of the device. A Beath pin was then passed through the tibial and femoral tunnels and out through the soft tissues of the lateral thigh. The lead sutures of the fixation device were then placed in the eyelet of the fixation device and advanced through the tunnels and soft tissues of the lateral thigh. The device was then advanced through the tunnels and locked on the lateral femoral cortex. The closed loop was then shortened and the graft was advanced to the base of the femoral tunnel. Femoral fixation was excellent. The graft was then cycled 30 times. No impingement was noted on the intercondylar roof or lateral intercondylar wall. Tibial fixation was then achieved using a bioabsorbable InterFix screw and sheath. This was performed at 20 degrees of flexion with a posterior drawer force applied to the tibia. This resulted in excellent fixation. The arthroscope was placed back into the knee and the graft again visualized. Tension of the graft seemed to be excellent. No impingement was noted. Full range of motion was noted. The Elvira test noted to be normal. At this point, the arthroscopic equipment was removed from the knee. The tibial incision was thoroughly irrigated. The tourniquet deflated. Total tourniquet time for the procedure was 60 minutes. Next, the sartorius fascia was closed with 2-0 Vicryl interrupted suture. Subcutaneous tissue closed with 2-0 Vicryl interrupted suture. The skin was closed with 3-0 nylon interrupted suture. The arthroscopic portals were closed with 3-0 nylon interrupted suture. Sterile compressive dressing was then applied. The patient was placed in a hinged knee brace, locked in full extension. She tolerated the procedure well and was transferred to the recovery room in good condition. Rehab plan: Routine anterior cruciate ligament reconstruction rehab protocol. MMLUIGIL / JAMESN: [id number] /
[2020-12-26 11:42] VITALS: BP 115/71; PULSE 93
== END 2020-12-26 12:20 | disposition home or self-care (01) ==
LOC: OR 06:48
PROVIDERS: ATTEND Orthopaedic Surgery Sports Medicine
DX: S83.511A Sprain of anterior cruciate ligament of right knee, initial encounter (principal); S83.211A Bucket-handle tear of medial meniscus, current injury, right knee, initial encounter; X50.1XXA Overexertion from prolonged static or awkward postures, initial encounter; M67.51 Plica syndrome, right knee; M23.8X1 Other internal derangements of right knee; F32.9 Major depressive disorder, single episode, unspecified; F41.9 Anxiety disorder, unspecified; R45.0 Nervousness; Z97.3 Presence of spectacles and contact lenses; Z98.890 Other specified postprocedural states; Z87.891 Personal history of nicotine dependence; Z79.899 Other long term (current) drug therapy; Z88.5 Allergy status to narcotic agent
CPT/HCPCS: 81025; 29881; 29888; C1713; J2250; J1200; J1100; J0690 ×2; J2405; J2001; J3010; J0330; J2704; J1170; J1790